=== PATIENT | male | born 1950 | race African-American/Black ===

== ENCOUNTER 2021-07-14 16:08 | Emergency (ER) | payer MEDICARE, BC ==
[~2021-07-14] VITALS: Ht 175.3 cm; Wt 81.6 kg
[2021-07-14 16:59] LABS: Basophils # (auto) 0 10 ^3/uL (0-0.2); Basophils % (auto) 0.9 % (0.0-2.0); Eosinophils # (auto) 0.1 10 ^3/uL (0-0.8); Hematocrit 41.1 % (41.0-53.0); Hemoglobin 13.1 g/dL (13.5-17.5); Lymphocytes # (auto) 1.2 10 ^3/uL (0.4-5.4); Lymphocytes % (auto) 22.7 % (10.0-50.0); Mean Corpuscular Hemoglobin 23.8 pg (28.0-32.0); Mean Corpuscular Volume 74.3 fL (80.0-100.0); Monocytes # (auto) 0.4 10 ^3/uL (0-1.3); Neutrophils # (auto) 3.4 10 ^3/uL (1.6-8.6); Neutrophils % (auto) 66.4 % (37.0-80.0); Nucleated Red Blood Cells % 0.2 %; Red Blood Cells 5.53 10^6/uL (4.5-5.90); Red Cell Distribution Width 14.7 % (11.8-14.3); White Blood Cell 5.1 10^3/uL (4.4-10.8)
[2021-07-14 17:10] LABS: Albumin 3.7 g/dL (3.4-5.0); BUN/Creatinine Ratio 10.2; Potassium 4.3 mmol/L (3.5-5.1)
[2021-07-14 17:14] LABS: Bilirubin, Total 0.2 mg/dL (0.2-1.0); Total Protein 7.9 g/dL (6.4-8.2)
[2021-07-14] MEDS ORDERED: KETOROLAC TROMETH 30 MG/ML 1ML VIAL IV ONE (19:45)
[2021-07-14] MEDS ORDERED: KETOROLAC TROMETH 30 MG/ML 1ML VIAL IM ONE (20:15)
[2021-07-14 21:35] VITALS: BP 134/86
== END 2021-07-14 21:35 | disposition home or self-care (01) ==
LOC: ER 16:08
DX: M25.512 Pain in left shoulder (principal)
CPT/HCPCS: 36415; 71046; 73030; 80053; 84484; 85025; 85379; 93005

== ENCOUNTER 2021-10-22 12:01 | Inpatient (IN) | payer MEDICARE, BC ==
[~2021-10-22] VITALS: Ht 175.3 cm; Wt 89.3 kg
[2021-10-23 01:16] LABS: Basophils # (auto) 0.1 10 ^3/uL (0-0.2); Basophils % (auto) 0.8 % (0.0-2.0); Eosinophils # (auto) 0.1 10 ^3/uL (0-0.8); Eosinophils % (auto) 1.9 % (0.0-7.0); Hematocrit 36.8 % (41.0-53.0); Hemoglobin 11.6 g/dL (13.5-17.5); Lymphocytes % (auto) 15.9 % (10.0-50.0); Mean Corpuscular Hemoglobin 23.7 pg (28.0-32.0); Mean Corpuscular Hgb Conc. 31.7 g/dL (32.0-36.0); Monocytes # (auto) 0.6 10 ^3/uL (0-1.3); Monocytes % (auto) 9.2 % (0.0-12.0); Neutrophils # (auto) 4.8 10 ^3/uL (1.6-8.6); Neutrophils % (auto) 72.2 % (37.0-80.0); Red Cell Distribution Width 14.5 % (11.8-14.3); White Blood Cell 6.6 10^3/uL (4.4-10.8)
[2021-10-23 01:30] LABS: INR 1.06 (0.9-1.15)
[2021-10-23 01:34] LABS: Albumin 3.3 g/dL (3.4-5.0); BUN/Creatinine Ratio 12.4; Calcium 8.8 mg/dL (8.5-10.1)
[2021-10-23 01:37] LABS: Bilirubin, Total 0.2 mg/dL (0.2-1.0); Total Protein 7.1 g/dL (6.4-8.2)
[2021-10-23] MEDS ORDERED: hydrALAZINE HCL 20 MG/ML VL IV PRN (02:30)
[2021-10-23] MEDS ORDERED: GLIM4TAB42 PO (02:35)
[2021-10-23] MEDS ORDERED: AMLO-297 PO (02:35)
[2021-10-23] MEDS ORDERED: PRAV20TA3 PO (02:35)
[2021-10-23] MEDS ORDERED: RIV20T PO (02:35)
[2021-10-23] MEDS ORDERED: SITA100T7 PO (02:35)
[2021-10-23] MEDS ORDERED: DEXTROSE (50%) 50ML SYRG IV PRN (02:45)
[2021-10-23 02:47] LABS: Cholesterol 135 mg/dL (< 200); Triglycerides 144 mg/dL (< 150)
[2021-10-23 02:50] LABS: HDL Cholesterol 43 mg/dL (40-59); LDL Cholesterol 71 mg/dL (< 100)
[2021-10-23] MEDS: ACCU-CHEK COMFORT CURVE STRIP VI SCH ×4 (06:31→21:54)
[2021-10-23] MEDS: InsuLIN REG 1unit/0.01ml Soln (100units/ml) SC SCH ×3 (06:37→17:50)
[2021-10-23 07:01] VITALS: BP 150/86
[2021-10-23] MEDS ORDERED: LATA0.0019 EACHEYE (07:39)
[2021-10-23 09:00] VITALS: BP 116/74
[2021-10-23] MEDS: ENOXAPARIN SOD 100 MG/1 ML SYRINGE SC SCH ×2 (09:30→21:53)
[2021-10-23] MEDS: GLIMEPIRIDE 2 MG TAB PO SCH (09:30)
[2021-10-23] MEDS ORDERED: AMLODIPINE BESYLATE VALSARTAN PO SCH (10:00)
[2021-10-23] MEDS: SITAGLIPTIN PHOSPHATE 100 MG PO SCH (10:00)
[2021-10-23] MEDS ORDERED: RIVAROXABAN 20 MG TAB PO SCH (10:00)
[2021-10-23] MEDS ORDERED: amLODIPine BESYLATE 5 MG TAB PO ONE (11:00)
[2021-10-23 13:00] VITALS: BP 121/74
[2021-10-23] MEDS ORDERED: WARFARIN SODIUM 2 MG TAB PO ONE (17:00)
[2021-10-23 17:04] VITALS: BP 130/73
[2021-10-23] MEDS ORDERED: InsuLIN REG 1unit/0.01ml Soln (100units/ml) SC SCH (22:00)
[2021-10-23] MEDS ORDERED: PRAVASTATIN SODIUM 20 MG TAB PO SCH (22:00)
[2021-10-24] VITALS: BP 121/67
[2021-10-24 05:13] VITALS: BP 110/62
[2021-10-24] MEDS: InsuLIN REG 1unit/0.01ml Soln (100units/ml) SC SCH ×3 (06:42→16:41)
[2021-10-24] MEDS: ACCU-CHEK COMFORT CURVE STRIP VI SCH ×3 (06:43→16:41)
[2021-10-24 07:05] LABS: Basophils # (auto) 0.1 10 ^3/uL (0-0.2); Basophils % (auto) 1.1 % (0.0-2.0); Eosinophils # (auto) 0.1 10 ^3/uL (0-0.8); Hematocrit 38.1 % (41.0-53.0); Lymphocytes # (auto) 1.5 10 ^3/uL (0.4-5.4); Lymphocytes % (auto) 30.1 % (10.0-50.0); Mean Corpuscular Hemoglobin 23.3 pg (28.0-32.0); Mean Corpuscular Hgb Conc. 31.4 g/dL (32.0-36.0); Monocytes # (auto) 0.7 10 ^3/uL (0-1.3); Monocytes % (auto) 13.9 % (0.0-12.0); Neutrophils # (auto) 2.5 10 ^3/uL (1.6-8.6); Neutrophils % (auto) 51.9 % (37.0-80.0); Nucleated Red Blood Cells % 0.1 %; Red Blood Cells 5.14 10^6/uL (4.5-5.90); Red Cell Distribution Width 14.2 % (11.8-14.3); White Blood Cell 4.9 10^3/uL (4.4-10.8)
[2021-10-24 07:12] LABS: Mean Corpuscular Volume 74.2 fL (80.0-100.0)
[2021-10-24 07:21] LABS: INR 1.06 (0.9-1.15); Partial Thromboplastin Time 30.2 sec (23.6-33.0)
[2021-10-24 07:26] LABS: Albumin 3.1 g/dL (3.4-5.0); Calcium 8.9 mg/dL (8.5-10.1); Potassium 4.1 mmol/L (3.5-5.1)
[2021-10-24 07:31] LABS: % Iron Saturation 10.9 % (20-55)
[2021-10-24 07:41] LABS: BUN/Creatinine Ratio 8.7; Bilirubin, Total 0.3 mg/dL (0.2-1.0); Total Protein 7.1 g/dL (6.4-8.2)
[2021-10-24 08:00] VITALS: BP 123/75
[2021-10-24 09:00] VITALS: BP 123/75
[2021-10-24] MEDS ORDERED: amLODIPine BESYLATE 5 MG TAB PO SCH (10:00)
[2021-10-24] MEDS: SITAGLIPTIN PHOSPHATE 100 MG PO SCH (10:00)
[2021-10-24] MEDS: GLIMEPIRIDE 2 MG TAB PO SCH (10:04)
[2021-10-24] MEDS: ENOXAPARIN SOD 100 MG/1 ML SYRINGE SC SCH (10:05)
[2021-10-24] MEDS ORDERED: WARF5TAB71 PO (10:24)
[2021-10-24 13:00] VITALS: BP 128/75
[2021-10-24 15:12] VITALS: BP 123/75
[2021-10-24] MEDS ORDERED: WARFARIN SODIUM 2 MG TAB PO ONE (17:00)
== END 2021-10-24 17:11 | disposition home health service (06) | DRG 301 ==
LOC: ER 12:01 → OVERFLOW 10-23 02:18 → WEST WING 10-23 05:20
PROVIDERS: ADMIT Registered Nurse; ATTEND Internal Medicine Pulmonary Disease
DX: I82.412 Acute embolism and thrombosis of left femoral vein (principal); N18.32 Chronic kidney disease, stage 3b; D50.9 Iron deficiency anemia, unspecified; Z20.822 Contact with and (suspected) exposure to COVID-19; M19.90 Unspecified osteoarthritis, unspecified site; I12.9 Hypertensive chronic kidney disease with stage 1 through stage 4 chronic kidney disease, or unspecified chronic kidney disease; E11.22 Type 2 diabetes mellitus with diabetic chronic kidney disease; Z88.8 Allergy status to other drugs, medicaments and biological substances
CPT/HCPCS: 36415; 71045; 78582; 80053; 80061; 81241; 82728; 82962; 83036; 83540; 83550; 83615; 85025; 85302; 85306; 85379; 85610; 85730; 93971; G0378; J1815

== ENCOUNTER 2022-09-14 10:04 | Emergency (ER) | payer MEDICARE, BC ==
[~2022-09-14] VITALS: Ht 175.3 cm; Wt 82.0 kg
[~2022-09-14 10:04] MED LIST: AMLO-297 PO; GLIM4TAB42 PO; LATA0.008 EACHEYE; PRAV20TA3 PO; SITA100T7 PO; WARF-66 PO
[2022-09-14 11:24] VITALS: BP 145/75
[2022-09-14] MEDS ORDERED: IBUP-1454 PO (13:51)
[2022-09-14] MEDS ORDERED: HYDR-4902 PO (13:51)
== END 2022-09-14 13:59 | disposition home or self-care (01) ==
LOC: ER 10:04
DX: M47.816 Spondylosis without myelopathy or radiculopathy, lumbar region (principal); M47.814 Spondylosis without myelopathy or radiculopathy, thoracic region; Z79.01 Long term (current) use of anticoagulants; Z79.899 Other long term (current) drug therapy; Z88.8 Allergy status to other drugs, medicaments and biological substances
CPT/HCPCS: 72070; 72100; 82962